=== PATIENT | male | born 1995 | race American Indian/Alaskan Native ===

== ENCOUNTER 2017-12-01 21:07 | Emergency (ER) | payer MEDICAID ==
--- NOTE | 2017-12-01 22:56 | Emergency Department Report ---
HPI - General Chief Complaint: Earache Time Seen by Provider: 12/01/17 22:55 - HPI HPI: 22-year-old -[place] male presents to the emergency department with a complaint of a 2 day history of decreased hearing in the right ear. He denies any pain to the right ear canal or inside the right ear. He denies any fever. He tried some nonspecific eardrops today without much relief. He denies any trauma. ED Past Medical Hx - Past Medical History Hx Hypertension: Yes (borderline htn, no meds) - Surgical History Past Surgical History?: No - Social History Smoking Status: Never Smoker Substance Use Type: None - Medications Home Medications: Home Medications Medication Instructions Recorded Confirmed Last Taken Type predniSONE [Deltasone] 50 mg PO QDAY #5 tab 03/07/15 Unknown Rx Fluticasone [Flonase] 1 spray NS BID #1 bottle 12/02/17 Unknown Rx ED Review of Systems ROS: Stated complaint: LOSS OF HEARING IN RT EAR Other details as noted in HPI Comment: All other systems reviewed and negative Constitutional: denies: chills, fever Eyes: denies: eye pain, vision change ENT: hearing loss. denies: throat pain Respiratory: denies: cough, shortness of breath Cardiovascular: denies: chest pain, palpitations Gastrointestinal: denies: nausea, vomiting Genitourinary: denies: dysuria, discharge Musculoskeletal: denies: back pain, arthralgia Skin: denies: rash, lesions Neurological: denies: headache, weakness Physical Exam - Physical Exam Vital Signs: Vital Signs 12/01/17 21:14 Temperature 97.8 F Pulse Rate 102 H Respiratory 18 Rate Blood Pressure 187/85 O2 Sat by Pulse 98 Oximetry Physical Exam: GENERAL: The patient is well-developed well-nourished. HEENT: Normocephalic. Atraumatic. Patient has moist mucous membranes. Boggy nasal mucosa. The right external ear canal has a cerumen impaction. Once cleaned, the tympanic membrane appears normal. EYES: Extraocular motions are intact. Pupils are equal and reactive to light bilaterally. NECK: Supple. Trachea is midline. CHEST/LUNGS: Clear to auscultation. There is no respiratory distress noted. HEART/CARDIOVASCULAR: Regular. There is no tachycardia. There is no gallop rub or murmur. ABDOMEN: Abdomen is soft, nontender. Patient has normal bowel sounds. There is no abdominal distention. SKIN: Skin is warm and dry. NEURO: The patient is awake, alert, and oriented. The patient is cooperative. The patient has no focal neurologic deficits. The patient has normal speech. Nerves II through XII grossly intact. MUSCULOSKELETAL: There is no tenderness or deformity. There is no limitation range of motion. There is no evidence of acute injury. ED Course Vital Signs 12/01/17 21:14 Temperature 97.8 F Pulse Rate 102 H Respiratory 18 Rate Blood Pressure 187/85 O2 Sat by Pulse 98 Oximetry ED Medical Decision Making - Radiology Data Radiology results: report reviewed - Medical Decision Making This patient presents with a 2 day history of some decreased hearing in the right ear. At first, the external ear canal was impacted with cerumen. It was cleaned with ear irrigation and the patient says that he did not have any improvement in his symptoms. For this reason, I did a CT scan of the head without contrast that did not show any bleed, shift, mass, ischemia or any other acute process. The patient later started describing something that sounds more consistent with a eustachian tube dysfunction. He will be placed on Flonase and has been given multiple referrals for otolaryngology. He will return to the ER for any worsening of his symptoms or any acute distress. - Differential Diagnosis eustachian tube dysfunction, cerumen impaction, malignancy Critical Care Time: No Critical care attestation.: If time is entered above; I have spent that time in minutes in the direct care of this critically ill patient, excluding procedure time. ED Disposition Clinical Impression: Decreased hearing of right ear Eustachian tube dysfunction Qualifiers: Laterality: right Qualified Code(s): H69.81 - Other specified disorders of Eustachian tube, right ear Disposition: DC-01 TO HOME OR SELFCARE Is pt being admited?: No Condition: Stable Instructions: Earache (ED) Additional Instructions: Please follow up with in ENT physician/division order analyst, regarding your decreased hearing in the right ear. Return to the emergency Department with any worsening of your symptoms or any acute distress. Prescriptions: Fluticasone [Flonase] 1 spray NS BID #1 bottle Referrals: SERVANDO VARGAS MD [Primary Care Provider] - 2-3 Days MARY GUTIERREZ MD [Staff Physician] - 2-3 Days JEFF BONE MD [Staff Physician] - 2-3 Days JENNIFER BLANCO MD [Staff Physician] - 2-3 Days Time of Disposition: 00:52
--- NOTE | 2017-12-02 00:32 | Cat Scan Report ---
FINAL REPORT EXAM: CT HEAD/BRAIN WO CON HISTORY: Acute hearing loss TECHNIQUE: CT was performed from the foramen magnum through the vertex in the axial plane without the use of intravenous contrast. PRIORS: None. FINDINGS: There is soft tissue attenuation in the right external auditory canal most likely representing cerumen. The bilateral mastoid air cells and middle ear cavities appear clear. There is extensive mucosal thickening in the bilateral ethmoid air cells, frontal sinuses and sphenoid sinuses. The lowe/white matter attenuation pattern is normal. There is no mass lesion or mass effect. There are no abnormal extra-axial fluid collections. There is no evidence of acute intracranial hemorrhage or infarct. The ventricles are of normal size and configuration. The skull and orbits are unremarkable. IMPRESSION: 1. Soft tissue attenuation in the right external auditory canal most likely represents cerumen 2. Extensive chronic sinus disease 3. No acute intracranial findings
[2017-12-02 01:35] VITALS: BP 125/68
== END 2017-12-02 01:34 | disposition home or self-care (01) ==
LOC: ED 21:07
DX: H61.21 Impacted cerumen, right ear (principal); H69.81 Other specified disorders of Eustachian tube, right ear; I10 Essential (primary) hypertension
CPT/HCPCS: 70450; 99284